=== PATIENT | female | born 1930 | race Caucasian/White ===

== ENCOUNTER 2020-02-06 13:32 | Inpatient (IN) | payer MEDICARE, MEDICAID ==
[~2020-02-06] VITALS: Ht 160 cm; Wt 79.0 kg
[~2020-02-06 13:32] MED LIST: AMLO2.5T2 PO; ASPI-611 PO; ATOR20TA66 PO; CALC600T22 PO; COU4T PO; ERGO500014 PO; FLAX100031 PO; FURO80TA87 PO; LEVO75TA PO; MAGN400C PO; MECLAZINE PO; OMEP20CA15 PO; POTA10CA44 PO; TRAZ150T78 PO; VALS160T2 PO; [UNRECOGNIZED DRUG - OTHER] PO
[2020-02-06 13:54] LABS: BASOPHILS # (AUTO) 0.1 X10'3 (0-0.2); BASOPHILS % (AUTO) 0.6 % (0-1); EOSINOPHILS # (AUTO) 0.1 X10'3 (0-0.9); EOSINOPHILS % (AUTO) 0.8 % (0-6); HEMATOCRIT 42.3 % (35.0-45.0); HEMOGLOBIN 14.2 g/dl (12.0-16.0); LYMPHOCYTES # (AUTO) 1.8 X10'3 (1.1-4.8); LYMPHOCYTES % (AUTO) 20.4 % (21-51); MEAN CORPUSCULAR HEMOGLOBIN 32.7 PG (27.0-31.0); MEAN CORPUSCULAR HGB CONC 33.7 g/dL (33.0-36.5); MONOCYTES # (AUTO) 0.6 X10'3 (0-0.9); MONOCYTES % (AUTO) 6.5 % (2-12); NEUTROPHILS # (AUTO) 6.4 X10'3 (1.8-7.7); NEUTROPHILS % (AUTO) 71.7 % (42-75); PLATELET COUNT 214 X10'3 (140-440); RED BLOOD COUNT 4.36 X10'6 (4.20-5.60); RED CELL DISTRIBUTION WIDTH 14.2 % (11.5-14.5)
--- NOTE | 2020-02-06 14:02 | NUR ---
pt says she woke up with no pain but shortly after taking her morning meds her chest started to hurt her son had her call 911 they gave her nitro and asa on the way to the hospital say pain is gone now but is tender to palpation in chest. she does not recall lifting or moving any thing heavy yesterday did did move some chairs around a few days ago
[2020-02-06 14:03] LABS: ALANINE AMINOTRANSFERASE 76 U/L (12-78); ALBUMIN 3.8 G/DL (3.4-5.0); ALKALINE PHOSPHATASE 167 IU/L (46-116); ANION GAP 10 (8-16); ASPARTATE AMINO TRANSFERASE 151 U/L (10-37); BILIRUBIN,TOTAL 1.1 MG/DL (0.1-1.0); BLOOD UREA NITROGEN 25 MG/DL (7-18); BUN/CREATININE RATIO 18.5 (6.6-38.0); CALCIUM 10.3 MG/DL (8.5-10.1); CHLORIDE 103 MMOL/L (99-107); CREATININE 1.35 MG/DL (0.40-0.90); SODIUM 138 MMOL/L (135-145); TOTAL CARBON DIOXIDE 25.3 MMOL/L (24-32); TOTAL PROTEIN 7.7 G/DL (6.4-8.2); eGFR 37 ML/MIN
[2020-02-06 14:06] LABS: GLUCOSE 140 MG/DL (70-104)
[2020-02-06] MEDS ORDERED: TIOT4MIS3 PO (14:34)
[2020-02-06] MEDS ORDERED: LOSA50TA3 PO (14:34)
[2020-02-06] MEDS ORDERED: aspirin 81mg tab.chew PO ONE (14:35)
[2020-02-06] MEDS ORDERED: nitroGLYCERIN 0.4mg/hour patch TD ONE (14:35)
[2020-02-06] MEDS ORDERED: metoprolol tartrate 1mg/ml inj IV PRN (15:10)
[2020-02-06] MEDS ORDERED: acetaminophen 325mg tablet PO PRN ×2 (15:10)
[2020-02-06] MEDS ORDERED: magnesium Cl slow-release 64mg tablet PO PRN (15:10)
[2020-02-06] MEDS ORDERED: magnesium 2GM in 50ml NS 50 ML IV PRN (15:10)
[2020-02-06] MEDS ORDERED: magnesium hydroxide 30ml (MOM) UD suspension PO PRN (15:10)
[2020-02-06] MEDS ORDERED: diphenhydrAMINE 50 mg/ml inj IV PRN (15:10)
[2020-02-06] MEDS ORDERED: potassium Cl 20 mEq SR tablet PO PRN ×2 (15:10)
[2020-02-06] MEDS ORDERED: morphine 2 MG/ML inj. syringe IV PRN ×2 (15:10)
[2020-02-06] MEDS ORDERED: bisacodyl 10mg suppository rectal RC PRN (15:10)
[2020-02-06] MEDS ORDERED: regadenoson 0.4mg/5ml syringe IV PRN (15:10)
[2020-02-06] MEDS ORDERED: potassium CL 10mEq/100ml bag 100 ML IV PRN ×2 (15:10)
[2020-02-06] MEDS ORDERED: mag hydrox/Alum hydrox/simeth 30ml oral suspension PO PRN (15:10)
[2020-02-06] MEDS ORDERED: ondansetron/PF 4mg/2ml inj IV PRN (15:10)
[2020-02-06] MEDS ORDERED: HYDROcodone/acetaminophen 5mg/325mg tablet PO PRN (15:10)
[2020-02-06] MEDS ORDERED: acetaminophen 650mg rectal suppository RC PRN (15:10)
[2020-02-06] MEDS ORDERED: diphenhydrAMINE 25mg capsule PO PRN (15:10)
[2020-02-06] MEDS ORDERED: aminophylline 250mg/10ml inj. IV PRN (15:10)
[2020-02-06] MEDS ORDERED: HYDROcodone/acetaminophen 10/325mg tab PO PRN (15:10)
[2020-02-06] MEDS ORDERED: nitroGLYCERIN 0.4mg SUBLingual tab SL PRN (15:10)
[2020-02-06] MEDS ORDERED: magnesium 4gm in 100ml NS 100 ML IV PRN (15:10)
[2020-02-06] MEDS ORDERED: LEVO100T PO (15:25)
[2020-02-06] MEDS: normal saline 1000ml 1,000 ML IV SCH (15:42)
[2020-02-06] MEDS ORDERED: MECL-159 PO (15:48)
--- NOTE | 2020-02-06 17:10 | NUR ---
Patient in room ED 9. I have received report from SARAH Carranza RN will get room ready for patient arrival
--- NOTE | 2020-02-06 17:30 | NUR ---
Patient arrived on unit, able to ambulate independently to bed from hallway, no acute distress, VSS, MRSA swab collected, will continue to monitor.
[2020-02-06 17:43] VITALS: BP 122/70
[2020-02-06 18:01] LABS: HEMOGLOBIN A1C 6.3 % (4.5-6.2)
--- NOTE | 2020-02-06 18:07 | NUR ---
Problems reprioritized. Patient report given, questions answered & plan of care reviewed with TONIE An.
--- NOTE | 2020-02-06 18:09 | NUR ---
Patient in room PCU 3025. I have received report from Sandra SCHILLING and had the opportunity to ask questions and assume patient care.
[2020-02-06] MEDS ORDERED: non-formulary drug (Flaxseed Oil (Flax Seed Oil) 1,000 MG) PO SCH (20:00)
[2020-02-06] MEDS: K and/or MAG REPLACEMENT MC SCH (20:51)
[2020-02-06] MEDS ORDERED: warfarin 4mg tablet PO ONE (21:00)
[2020-02-06 22:00] VITALS: BP 120/63
[2020-02-07] MEDS: normal saline 1000ml 1,000 ML IV SCH ×2 (01:19→13:12)
[2020-02-07 02:00] VITALS: BP 126/72
[2020-02-07 02:12] LABS: BASOPHILS % (AUTO) 0.4 % (0-1); EOSINOPHILS # (AUTO) 0.1 X10'3 (0-0.9); EOSINOPHILS % (AUTO) 1.1 % (0-6); HEMATOCRIT 39.7 % (35.0-45.0); HEMOGLOBIN 13.3 g/dl (12.0-16.0); LYMPHOCYTES % (AUTO) 24.7 % (21-51); MEAN CORPUSCULAR HEMOGLOBIN 32.6 PG (27.0-31.0); MEAN CORPUSCULAR HGB CONC 33.6 g/dL (33.0-36.5); MEAN CORPUSCULAR VOLUME 97.3 FL (78-98); MEAN PLATELET VOLUME 8.1 FL (7.4-10.4); MONOCYTES # (AUTO) 0.6 X10'3 (0-0.9); NEUTROPHILS # (AUTO) 5.3 X10'3 (1.8-7.7); NEUTROPHILS % (AUTO) 66.8 % (42-75); PLATELET COUNT 208 X10'3 (140-440); RED BLOOD COUNT 4.08 X10'6 (4.20-5.60); RED CELL DISTRIBUTION WIDTH 14.1 % (11.5-14.5); WHITE BLOOD COUNT 7.9 X10'3 (4.5-11.0)
[2020-02-07 02:32] LABS: ALANINE AMINOTRANSFERASE 142 U/L (12-78); ALBUMIN 3.5 G/DL (3.4-5.0); ALBUMIN/GLOBULIN RATIO 0.9 (1.1-1.5); ALKALINE PHOSPHATASE 159 IU/L (46-116); ANION GAP 9 (8-16); ASPARTATE AMINO TRANSFERASE 173 U/L (10-37); BILIRUBIN,TOTAL 0.7 MG/DL (0.1-1.0); BLOOD UREA NITROGEN 22 MG/DL (7-18); BUN/CREATININE RATIO 18.8 (6.6-38.0); CALCIUM 8.9 MG/DL (8.5-10.1); CHLORIDE 107 MMOL/L (99-107); CREATININE 1.17 MG/DL (0.40-0.90); POTASSIUM 3.7 MMOL/L (3.5-5.1); SODIUM 140 MMOL/L (135-145); TOTAL CARBON DIOXIDE 24.1 MMOL/L (24-32); TOTAL PROTEIN 7.2 G/DL (6.4-8.2); eGFR 44 ML/MIN
[2020-02-07 02:33] LABS: GLUCOSE 84 MG/DL (70-104)
[2020-02-07 02:35] LABS: CHOL/HDL RATIO 2.1 (0.00-4.99); CHOLESTEROL 150 MG/DL (0-200); HDL CHOLESTEROL 73 MG/DL (35-60); LDL CHOLESTEROL 61 MG/DL (50-100); MAGNESIUM 1.8 MG/DL (1.5-2.4); TRIGLYCERIDES 76 MG/DL (20-135)
[2020-02-07 06:00] VITALS: BP 124/70
--- NOTE | 2020-02-07 06:26 | NUR ---
Problems reprioritized. Patient report given, questions answered & plan of care reviewed with Joaquin SCHILLING.
--- NOTE | 2020-02-07 06:36 | NUR ---
Patient in room PCU 3025. I have received report from TONIE An and had the opportunity to ask questions and assume patient care.
[2020-02-07] MEDS: K and/or MAG REPLACEMENT MC SCH (07:04)
[2020-02-07] MEDS ORDERED: pantoprazole 40mg Tablet.DR PO SCH (07:30)
[2020-02-07] MEDS ORDERED: atorvastatin 20mg tablet PO SCH (08:00)
[2020-02-07] MEDS ORDERED: aspirin 81mg tablet.DR PO SCH (08:00)
[2020-02-07] MEDS ORDERED: levoTHYROXINE 100mcg tablet PO SCH (08:00)
[2020-02-07] MEDS ORDERED: amLODIPine 5mg tablet PO SCH (08:00)
[2020-02-07 11:00] VITALS: BP 122/70
--- NOTE | 2020-02-07 14:38 | NUR ---
discharged. M/C rights signed. Educated on follow-up and chest pain. PIV taken out and tele off. Picked up belongings. Wheeled out to front and picked up by son. Stable for DC per MD.
[2020-02-07] MEDS ORDERED: warfarin 5mg tablet PO ONE (21:00)
--- NOTE | 2020-02-09 15:55 | NUR ---
Case Management DC follow up: Spoke to pt via telephone. s/p: CP Reports: "feeling tired, but doing pretty good" Denies: SOB, resp distress, acute/persistent CP, MINER, blurry vision, N/V, emergent general pain, abd tenderness or distention, vertigo, syncope, fever, unexplained bruising, bleeding. CP most likely muscle pain from pt moving furniture. Verbalizes understanding of s/s that would warrant 9-11/ER visit for further evaluation. Verbalizes understanding of current/new Rx & why prescribed; taking as ordered, no ase noted r/t polypharmacy. Acknowledges need to follow-up/keep appts w/PCP/[facility]. pt in touch w/both facilities, each awaiting pt records from most recent admit, then will schedule follow ups. Questions answered, needs met at DC. No further questions at this time.
== END 2020-02-07 14:33 | disposition home or self-care (01) | DRG 206 ==
LOC: ER 13:33 → ED HOLD 15:06 → PCU 3S 17:33
PROVIDERS: ADMIT Family Medicine; ATTEND Family Medicine
DX: M94.0 Chondrocostal junction syndrome [Tietze] (principal); E03.9 Hypothyroidism, unspecified; E78.5 Hyperlipidemia, unspecified; F41.8 Other specified anxiety disorders; I12.9 Hypertensive chronic kidney disease with stage 1 through stage 4 chronic kidney disease, or unspecified chronic kidney disease; I25.10 Atherosclerotic heart disease of native coronary artery without angina pectoris; I48.91 Unspecified atrial fibrillation; J44.9 Chronic obstructive pulmonary disease, unspecified; K21.9 Gastro-esophageal reflux disease without esophagitis; N18.9 Chronic kidney disease, unspecified; R07.89 Other chest pain; Z96.643 Presence of artificial hip joint, bilateral; Z96.653 Presence of artificial knee joint, bilateral; Z60.2 Problems related to living alone; M19.90 Unspecified osteoarthritis, unspecified site; Z66 Do not resuscitate; Z79.01 Long term (current) use of anticoagulants; Z79.890 Hormone replacement therapy; Z80.3 Family history of malignant neoplasm of breast; Z82.49 Family history of ischemic heart disease and other diseases of the circulatory system; Z90.710 Acquired absence of both cervix and uterus; Z95.0 Presence of cardiac pacemaker; Z95.5 Presence of coronary angioplasty implant and graft; Z88.1 Allergy status to other antibiotic agents; Z88.8 Allergy status to other drugs, medicaments and biological substances; Z90.49 Acquired absence of other specified parts of digestive tract
CPT/HCPCS: 36415; 71045; 80053; 80061; 83036; 83735; 84100; 84484; 85025; 85610; 87081; 93005; 93306; 99285; G0378; J7030